=== PATIENT | female | born 1945 | race Caucasian/White ===

== ENCOUNTER 2017-06-19 14:27 | Day surgery (SDC) | payer MEDICARE ==
[~2017-06-19] VITALS: Ht 165.1 cm; Wt 105.2 kg
[~2017-06-19 14:27] MED LIST: ALBU90OI61 INH; ASPI81EC PO; ATEN100 PO; CHOL10002 PO; ESTEST.625 PO; FLUSAL2505 IH; HYDCHL25 PO; IBUP600 PO; LEVSOD125 PO; LISI20 PO; NITR.4SL SL
[2017-06-19] MEDS ORDERED: PRAV20 PO (14:48)
[2017-06-19] MEDS ORDERED: METO50ER PO (14:50)
[2017-06-19] MEDS ORDERED: AMLO5 PO (14:51)
[2017-06-19] MEDS ORDERED: MONT10T PO (14:51)
== END 2017-06-19 16:50 | disposition home or self-care (01) ==
LOC: ORSCSDS 14:27
PROVIDERS: Orthopaedic Surgery
PROC: 0LB60ZZ Excision of Left Lower Arm and Wrist Tendon, Open Approach (ICD-10-PCS; principal; 2017-06-19 16:00)
DX: M67.432 Ganglion, left wrist (principal); I10 Essential (primary) hypertension; J44.9 Chronic obstructive pulmonary disease, unspecified; Z87.891 Personal history of nicotine dependence; Z79.899 Other long term (current) drug therapy; E66.01 Morbid (severe) obesity due to excess calories; Z68.38 Body mass index [BMI] 38.0-38.9, adult
CPT/HCPCS: 88304; J0690; J1100; J2250; J2405; J3010; J7120

== ENCOUNTER 2017-12-28 12:11 | Inpatient (IN) | payer MEDICARE ==
[~2017-12-28] VITALS: Ht 165.1 cm; Wt 105.7 kg
[~2017-12-28 12:11] MED LIST changes: +ADVIL100 MG PO; +ALBU90OI6 INH; +AMLO5 PO; +ASPI81CH PO; +CENTRUM CARDIO PO; +FLUT1DIS5 INH; +LEVSOD100 PO; +LOSA25 PO; +LOSARTAN-HCTZ1 EAC1 PO; +METO50ER PO; +MONT10T PO; +NITR.6SL SL; +PRAV20 PO; +Systane 0.3-0.1 EACH BOTHEYES; +TRAM50 PO; +[UNRECOGNIZED DRUG - OTHER] PO
[2018-01-03 05:19] LABS: BASOPHILS ABSOLUTE AUTO 0.01 K/mm3 (0.00-0.23); BASOPHILS PERCENT AUTO 0 % (0-2); EOSINOPHILS PERCENT AUTO 0 % (0-6); Hematocrit 36.1 % (33.0-51.0); Hemoglobin 11.3 g/dL (11.5-16.0); IMMATURE GRAN ABSOLUTE AUTO 0.07 K/mm3 (0.00-0.10); IMMATURE GRAN PERCENT AUTO 1 % (0-1); LYMPHOCYTES ABSOLUTE AUTO 1.26 K/mm3 (0.84-5.20); LYMPHOCYTES PERCENT AUTO 10 % (21-46); MONOCYTES ABSOLUTE AUTO 1.17 K/mm3 (0.16-1.47); MONOCYTES PERCENT AUTO 9 % (4-13); Mean Corpuscular HGB 27.3 pg (26.0-34.0); Mean Corpuscular HGB Conc 31.3 g/dL (31.5-36.5); Mean Corpuscular Volume 87 fL (80-100); Mean Platelet Volume 10.4 fL (9.1-12.4); NEUTROPHILS ABSOLUTE AUTO 10.67 K/mm3 (1.96-9.15); NEUTROPHILS PERCENT AUTO 81 % (41-73); Platelet Count 241 K/mm3 (150-400); RDW Coefficient Variation 13.1 % (11.7-14.2); RDW Standard Deviation 41.3 fL (35.1-46.3); Red Blood Cell Count 4.14 M/mm3 (3.80-5.20); White Blood Cell Count 13.18 K/mm3 (4.00-11.30)
[2018-01-03 05:29] LABS: Bun/Creatinine Ratio 20.5 (12.0-20.0); Creatinine, Blood 0.98 mg/dL (0.40-1.00); Magnesium, Blood 1.9 mg/dL (1.6-2.4); Potassium, Blood 3.6 mmol/L (3.5-5.5)
[2018-01-03] MEDS ORDERED: ENOX40I SC (10:59)
[2018-01-03] MEDS ORDERED: PROM25 PO (11:00)
[2018-01-03] MEDS ORDERED: OXYC5 PO (11:01)
[2018-01-03] MEDS ORDERED: ASPI325EC PO (11:02)
== END 2018-01-03 15:12 | disposition home or self-care (01) | DRG 470 ==
LOC: SURS 01-02 05:52 → PRE IP 01-02 07:30 → SURS 01-02 11:45
PROVIDERS: Orthopaedic Surgery
PROC: 0SR903A Replacement of Right Hip Joint with Ceramic Synthetic Substitute, Uncemented, Open Approach (ICD-10-PCS; principal; 2018-01-02 07:30)
DX: M16.11 Unilateral primary osteoarthritis, right hip (principal); E87.6 Hypokalemia; Z79.82 Long term (current) use of aspirin; J45.909 Unspecified asthma, uncomplicated; I10 Essential (primary) hypertension; E03.9 Hypothyroidism, unspecified; E66.9 Obesity, unspecified; Z68.38 Body mass index [BMI] 38.0-38.9, adult
CPT/HCPCS: 36415; 72170; 80048; 83735; 85025; 86850; 86900; 86901; 88300; 94760; 97110; 97116; 97162; 97530; C1713; C1776; G8978; G8979; G8980; J0171; J0690; J0735; J1100; J1170; J1650; J1885; J2250; J2405; J2550; J2795; J3010; J3370; J7120

== ENCOUNTER → 2019-02-26 | Outpatient (CLI) | payer MEDICARE ==
[~2019-02-26] MED LIST changes: +ASPI325EC PO; +ENOX40I SC; +OXYC5 PO; +PROM25 PO
[2019-02-28 12:33] LABS: Stool Occult Bld Immuno 1 Negative (NEGATIVE)
== END | disposition home or self-care (01) ==
LOC: LAB EV 11:20
PROVIDERS: Internal Medicine
DX: Z12.11 Encounter for screening for malignant neoplasm of colon (principal); E78.5 Hyperlipidemia, unspecified; R73.09 Other abnormal glucose
CPT/HCPCS: G0328

== ENCOUNTER 2019-11-18 10:24 | Day surgery (SDC) | payer MEDICARE ==
[~2019-11-18] VITALS: Ht 162.6 cm; Wt 107.0 kg
[~2019-11-18 10:24] MED LIST changes: +ALBU90OI INH; +Amiodarone HCl200 MG PO; +ELIQUIS5 MG PO; +Flovent Disku100 MCG INH; +IRBE150 PO; +MAGNESIUM OXID400 M1 PO
--- NOTE | 2019-11-18 11:30 | NUR ---
PT'S IN ROOM AND CALL LIGHT IN REACH.
--- NOTE | 2019-11-18 12:18 | NUR ---
200 J SYNCHRONIZED SHOCK DELIEVERED. PT TOLERATED WELL.
--- NOTE | 2019-11-18 12:33 | NUR ---
PT'S IN ROOM.
--- NOTE | 2019-11-18 13:27 | NUR ---
DISCHARGE INSTRUCTIONS REVIEWED ALL QUESTIONS ANSWERED. 20 G IV DISCONTINUED FROM LEFT AC WITH INTACT CANNULA. PT ESCORTED OUT VIA WHEELCHAIR ESCORT.
== END 2019-11-18 22:48 | disposition home or self-care (01) ==
LOC: MHTC 10:24
DX: I48.91 Unspecified atrial fibrillation (principal)
CPT/HCPCS: 92960; 93005; 93010; J2704; J7030

== ENCOUNTER 2019-12-22 06:57 | Day surgery (SDC) | payer MEDICARE ==
--- NOTE | 2019-12-22 08:54 | NUR ---
DISCHARGE SUMMARY Patient up to Ambulate independently. Gait steady. Discharge instructions reviewed with patient. Patient verbalizes understanding. Copy given to patient to take home. PT LEFT TO GO HOME WITH . IV DC'D.
== END 2019-12-22 12:00 | disposition home or self-care (01) ==
LOC: CT 06:57 → ORD 06:57 → CT 08:00 → ORD 12:00
DX: I48.91 Unspecified atrial fibrillation (principal); I10 Essential (primary) hypertension; E78.5 Hyperlipidemia, unspecified; E03.9 Hypothyroidism, unspecified; J44.9 Chronic obstructive pulmonary disease, unspecified; E55.9 Vitamin D deficiency, unspecified; Z79.01 Long term (current) use of anticoagulants; Z79.51 Long term (current) use of inhaled steroids; Z79.899 Other long term (current) drug therapy; Z87.891 Personal history of nicotine dependence; Z88.1 Allergy status to other antibiotic agents; Z88.5 Allergy status to narcotic agent
CPT/HCPCS: 75574; Q9967

== ENCOUNTER → 2022-11-29 | Outpatient (CLI) | payer MEDICARE | END | disposition home or self-care (01) | LOC: LAB SHORT 17:04 → LAB 17:04 | DX: L03.032 Cellulitis of left toe (principal) | CPT/HCPCS: 87070; 87077; 87205 ==

== ENCOUNTER 2024-04-13 20:50 | Inpatient (IN) | payer MEDICARE ==
[~2024-04-13] VITALS: Ht 157.5 cm; Wt 103.1 kg
[~2024-04-13 20:50] MED LIST changes: +EUTHYROX125 MCG PO; -LEVSOD100 PO; +METO25ER PO; +PRAVASTATIN SOD40 MG PO; +SYSTANE 0.4-0.315 ML BOTHEYES; -Systane 0.3-0.1 EACH BOTHEYES
[2024-04-13 21:57] LABS: BASOPHILS ABSOLUTE AUTO 0.03 K/mm3 (0.00-0.23); BASOPHILS PERCENT AUTO 0 % (0-2); EOSINOPHILS PERCENT AUTO 0 % (0-6); Hematocrit 44.1 % (33.0-51.0); Hemoglobin 14.4 g/dL (11.5-16.0); IMMATURE GRAN ABSOLUTE AUTO 0.08 K/mm3 (0.00-0.10); IMMATURE GRAN PERCENT AUTO 1 % (0-1); LYMPHOCYTES PERCENT AUTO 5 % (21-46); MONOCYTES ABSOLUTE AUTO 0.63 K/mm3 (0.16-1.47); MONOCYTES PERCENT AUTO 7 % (4-13); Mean Corpuscular HGB 28.3 pg (26.0-34.0); Mean Corpuscular HGB Conc 32.7 g/dL (31.5-36.5); Mean Corpuscular Volume 87 fL (80-100); Mean Platelet Volume 10.9 fL (9.1-12.4); NEUTROPHILS ABSOLUTE AUTO 7.35 K/mm3 (1.96-9.15); NEUTROPHILS PERCENT AUTO 87 % (41-73); Platelet Count 215 K/mm3 (150-400); RDW Coefficient Variation 13.6 % (11.7-14.2); RDW Standard Deviation 43.3 fL (35.1-46.3); Red Blood Cell Count 5.08 M/mm3 (3.80-5.20); White Blood Cell Count 8.49 K/mm3 (4.00-11.30)
[2024-04-13] MEDS ORDERED: Albuterol 2.5 MG/3 ML VIAL INH SCH (22:00)
[2024-04-13] MEDS ORDERED: Ipratropium Bromide INH 0.02% 0.5 mg/2.5ML Vial INH SCH (22:00)
[2024-04-13] MEDS ORDERED: Ondansetron HCl 2 MG / ML 2ML Vial IV ONE (22:00)
[2024-04-13] MEDS ORDERED: MethylPREDNISolone Sod Succ 125 MG Vial IV ONE (22:00)
[2024-04-13] MEDS ORDERED: Acetaminophen 500 MG Tab PO ONE (22:00)
[2024-04-13 22:11] LABS: Albumin, Blood 3.8 g/dL (3.4-5.0); Bilirubin, Total 0.8 mg/dL (0.1-1.0); Bun/Creatinine Ratio 17.8 (12.0-20.0); Calcium, Blood 9.7 mg/dL (8.5-10.1); Creatinine, Blood 1.01 mg/dL (0.40-1.00); Total Protein, Blood 7.8 g/dL (6.4-8.2)
[2024-04-13 22:52] LABS: Influenza B, PCR NEGATIVE (NEGATIVE); Resp Syncytial Virus, PCR NEGATIVE (NEGATIVE); SARS-Cov-2 (COVID-19) PCR, MMC NEGATIVE (NEGATIVE)
[2024-04-13] MEDS ORDERED: Potassium Chloride 20 MEQ/15 ML UDC PO ONE (23:40)
[2024-04-14] MEDS ORDERED: Acetaminophen 325 MG TABLET PO PRN (01:30)
[2024-04-14] MEDS ORDERED: FLU VACC TS2024-25(6MOS UP)/PF 45 MCG/0.5 ML SYRINGE IM ONE (01:30)
[2024-04-14] MEDS ORDERED: Potassium Chloride 20 MEQ TabCR PO ONE (02:00)
[2024-04-14] MEDS ORDERED: Apixaban 5 MG Tab PO SCH (02:00)
[2024-04-14 03:49] VITALS: BP 117/70
--- NOTE | 2024-04-14 05:23 | NUR ---
ADMIT NOTE/SHIFT SUMMARY REPORT WAS RECEIVED FROM THE ER. PT WAS TRANSPORTED TO ROOM 348 VIA GURNEY AND ARRIVED AT 0350. PT WAS ORIENTED TO ROOM AND STAFF. PT ALERT ORIENTED X 4 ABLE TO VERBALIZE NEEDS. REQUIRES 1 PERSON ASSIST TO GET UP TO THE TOILET. C/O GENERALIZED PAIN AND STATED THAT SHE HAD ALREADY TAKEN IBUPROFEN. SHE IS CURRENTLY ON 3L VIA NC AND STATED THAT SHE USES 2 L AT NIGHT AT HOME. SHES POSITIVE FOR INFLUENZA A. LUNG SOUNDS WITH WHEEZES. C/O SOB ON EXERTION. SHE HAD A TEMP IN THE ER BUT ITS NORMAL AT THIS TIME. HER SKIN CHECK SHOWED REDNESS TO UNDER BREASTS, UNDER ABDOMEN FOLDS GROIN AND HER COCCYX. SHE REMAINS ON DROPLET ISOLATION R/T TO INFLUENZA. SHES RESTING IN BED AT THIS TIME WITH CALL LIGHT IN REACH
[2024-04-14 06:09] LABS: BASOPHILS PERCENT AUTO 0 % (0-2); EOSINOPHILS PERCENT AUTO 0 % (0-6); Hematocrit 41.3 % (33.0-51.0); Hemoglobin 13.3 g/dL (11.5-16.0); IMMATURE GRAN ABSOLUTE AUTO 0.06 K/mm3 (0.00-0.10); IMMATURE GRAN PERCENT AUTO 1 % (0-1); LYMPHOCYTES ABSOLUTE AUTO 0.33 K/mm3 (0.84-5.20); LYMPHOCYTES PERCENT AUTO 5 % (21-46); MONOCYTES ABSOLUTE AUTO 0.21 K/mm3 (0.16-1.47); MONOCYTES PERCENT AUTO 3 % (4-13); Mean Corpuscular HGB 28.3 pg (26.0-34.0); Mean Corpuscular HGB Conc 32.2 g/dL (31.5-36.5); Mean Corpuscular Volume 88 fL (80-100); Mean Platelet Volume 10.4 fL (9.1-12.4); NEUTROPHILS ABSOLUTE AUTO 5.94 K/mm3 (1.96-9.15); NEUTROPHILS PERCENT AUTO 91 % (41-73); Platelet Count 190 K/mm3 (150-400); RDW Coefficient Variation 13.7 % (11.7-14.2); RDW Standard Deviation 44.2 fL (35.1-46.3); White Blood Cell Count 6.54 K/mm3 (4.00-11.30)
[2024-04-14 06:42] LABS: Albumin, Blood 3.4 g/dL (3.4-5.0); Albumin/Globulin Ratio 0.9 (0.8-1.8); Bilirubin, Total 0.6 mg/dL (0.1-1.0); Bun/Creatinine Ratio 20.7 (12.0-20.0); Calcium, Blood 9.8 mg/dL (8.5-10.1); Creatinine, Blood 1.16 mg/dL (0.40-1.00); Globulin, Blood 3.9 g/dL (2.2-4.0); Magnesium, Blood 1.8 mg/dL (1.6-2.4); Potassium, Blood 3.7 mmol/L (3.5-5.5); Total Protein, Blood 7.3 g/dL (6.4-8.2)
[2024-04-14 07:38] VITALS: BP 121/62
[2024-04-14] MEDS ORDERED: OxyCODONE HCL 5 MG TAB PO PRN (08:35)
[2024-04-14] MEDS ORDERED: PredniSONE 20 MG Tab PO SCH (09:00)
[2024-04-14] MEDS ORDERED: GuaiFENesin 600 MG TabCR PO SCH (09:00)
[2024-04-14] MEDS ORDERED: Oseltamivir Phosphate 75 MG Cap PO SCH (09:00)
[2024-04-14] MEDS ORDERED: Ondansetron 4 MG TAB PO PRN (11:55)
[2024-04-14 15:33] VITALS: BP 153/96
[2024-04-14] MEDS ORDERED: Ipratropium/Albuterol SulF 2.5-0.5MG/3 ML Amp INH PRN (17:55)
--- NOTE | 2024-04-14 18:42 | NUR ---
PT ALERT AND ORIENTED X4, VSS, 3L O2 VIA NC, BASELINE IS 0-2L MOSTLY OVERNIGHT. PT C/O COUGH, HEADACHE AND SORE THROAT, PRN OXYCODONE ORDERED AND GIVEN X1. DAUGHTER IN ROOM ASSISTED PT TO SHOWER. PT CONTINUES TO HAVE EXPIRATORY WHEEZES THROUGHOUT LUNGS, DUONEB ORDERED. PT HAS STRESS INCONTINENCE OF URINE. CALLS APPROPRIATELY, CALL LIGHT IN REACH, BED IN LOW LOCKED POSITION.
[2024-04-14 20:20] VITALS: BP 150/91
[2024-04-14] MEDS ORDERED: Miconazole Nitrate 2% 85 GM PWD TOP SCH (21:00)
[2024-04-14] MEDS ORDERED: Montelukast Sodium 10 MG Tab PO SCH (21:00)
--- NOTE | 2024-04-15 04:29 | NUR ---
SHIFT SUMMARY ADMITTED FOR COPD EXACERBATION. FULL CODE. ISOLATION FOR FLU A+. PLAN IS TAMIFLU, STEROIDS, RT TX'S. MAY NEED HOME O2 EVAL. STANDBY ASSIST. SHE IS ON 3 LPM O2. SHE IS ON ELIQUIS. A&O X4. ADA DIET. HX OF AFIB, 2 LPM O2 PRN AT HS., COPD. PAIN MEDICATION GIVEN THIS SHIFT, SEE EMAR.
[2024-04-15 04:46] VITALS: BP 161/93
[2024-04-15] MEDS ORDERED: Levothyroxine Sodium 0.15 MG Tab PO SCH (06:00)
[2024-04-15 06:23] LABS: BASOPHILS ABSOLUTE AUTO 0.01 K/mm3 (0.00-0.23); BASOPHILS PERCENT AUTO 0 % (0-2); EOSINOPHILS PERCENT AUTO 0 % (0-6); Hematocrit 42.5 % (33.0-51.0); Hemoglobin 13.8 g/dL (11.5-16.0); IMMATURE GRAN ABSOLUTE AUTO 0.08 K/mm3 (0.00-0.10); IMMATURE GRAN PERCENT AUTO 1 % (0-1); LYMPHOCYTES ABSOLUTE AUTO 0.89 K/mm3 (0.84-5.20); LYMPHOCYTES PERCENT AUTO 6 % (21-46); MONOCYTES ABSOLUTE AUTO 1.16 K/mm3 (0.16-1.47); MONOCYTES PERCENT AUTO 8 % (4-13); Mean Corpuscular HGB Conc 32.5 g/dL (31.5-36.5); Mean Corpuscular Volume 86 fL (80-100); Mean Platelet Volume 10.3 fL (9.1-12.4); NEUTROPHILS ABSOLUTE AUTO 13.38 K/mm3 (1.96-9.15); NEUTROPHILS PERCENT AUTO 86 % (41-73); Platelet Count 200 K/mm3 (150-400); RDW Coefficient Variation 13.5 % (11.7-14.2); RDW Standard Deviation 42.2 fL (35.1-46.3); Red Blood Cell Count 4.93 M/mm3 (3.80-5.20); White Blood Cell Count 15.52 K/mm3 (4.00-11.30)
[2024-04-15 06:54] LABS: Bun/Creatinine Ratio 24.2 (12.0-20.0); Calcium, Blood 9.4 mg/dL (8.5-10.1); Creatinine, Blood 0.87 mg/dL (0.40-1.00); Potassium, Blood 3.2 mmol/L (3.5-5.5)
[2024-04-15 07:41] VITALS: BP 155/90
[2024-04-15] MEDS ORDERED: Metoprolol Succinate 25 MG TABCR PO SCH (09:00)
[2024-04-15] MEDS ORDERED: Allopurinol 100 MG Tab PO SCH (09:00)
[2024-04-15] MEDS ORDERED: Polyethylene Glycol 3350 17 gm PO PRN (11:00)
[2024-04-15 16:07] VITALS: BP 150/83
--- NOTE | 2024-04-15 17:29 | NUR ---
NO ACUTE CHANGES THIS SHIFT. ATTEMPTED TO WEAN PT FROM O2. PT DESAT TO 85% ON R/A. PT PLACED ON 1.5L NC. PT DESAT TO 90% WITH 1.5L NC WITH COUGH. PT C/O OF GENERALIZED PAIN THAT WORSENS WITH COUGH. TREATED PER EMAR. BREATHING TREATMENTS PROVIDE SOME RELIEF, WHEEZING NOTED THROUGHOUT LUNG SOUNDS. PT SBA TO BATHROOM, PT FAMILY AT BEDSIDE TODAY. PT REPORTS NO BM FOR 3 OR 4 DAYS, MD AWARE, BOWEL CARE ORDERS IN, PRUNE JUICE AND BROWN COW GIVEN WITH NO RESULT YET. PT POOR APPETITE, ABLE TO TOLORATE PO INTAKE, PT DRINKING FLUIDS.
[2024-04-15 19:47] VITALS: BP 133/89
--- NOTE | 2024-04-16 03:54 | NUR ---
SHIFT SUMMARY ADMITTED FOR COPD EXACERBATION. FULL CODE. ISOLATION FOR FLU A+. PLAN IS FOR TAMIFLU, STEROIDS, AND RT TX'S. SHE IS A&O X4. STANDBY ASSIST - BRP. ON 02/27 LPM O2. DESATURATES WITH MOVEMENT. MAY NEED HOME O2 EVAL. SHE IS ON ELIQUIS. PAIN RX GIVEN THIS SHIFT FOR HEADACHE AND BODY ACHES.
[2024-04-16 04:24] VITALS: BP 147/94
[2024-04-16 06:19] LABS: BASOPHILS ABSOLUTE AUTO 0.02 K/mm3 (0.00-0.23); BASOPHILS PERCENT AUTO 0 % (0-2); EOSINOPHILS PERCENT AUTO 0 % (0-6); Hematocrit 44.8 % (33.0-51.0); Hemoglobin 14.5 g/dL (11.5-16.0); IMMATURE GRAN ABSOLUTE AUTO 0.08 K/mm3 (0.00-0.10); IMMATURE GRAN PERCENT AUTO 1 % (0-1); LYMPHOCYTES ABSOLUTE AUTO 0.94 K/mm3 (0.84-5.20); LYMPHOCYTES PERCENT AUTO 7 % (21-46); MONOCYTES ABSOLUTE AUTO 0.91 K/mm3 (0.16-1.47); MONOCYTES PERCENT AUTO 7 % (4-13); Mean Corpuscular HGB 28.4 pg (26.0-34.0); Mean Corpuscular HGB Conc 32.4 g/dL (31.5-36.5); Mean Corpuscular Volume 88 fL (80-100); Mean Platelet Volume 10.5 fL (9.1-12.4); NEUTROPHILS PERCENT AUTO 85 % (41-73); Platelet Count 237 K/mm3 (150-400); RDW Coefficient Variation 13.5 % (11.7-14.2); RDW Standard Deviation 43.6 fL (35.1-46.3); White Blood Cell Count 13.25 K/mm3 (4.00-11.30)
[2024-04-16 07:01] LABS: Albumin, Blood 3.6 g/dL (3.4-5.0); Albumin/Globulin Ratio 0.9 (0.8-1.8); Bilirubin, Total 0.5 mg/dL (0.1-1.0); Calcium, Blood 9.7 mg/dL (8.5-10.1); Creatinine, Blood 0.95 mg/dL (0.40-1.00); Globulin, Blood 3.8 g/dL (2.2-4.0); Potassium, Blood 3.5 mmol/L (3.5-5.5); Total Protein, Blood 7.4 g/dL (6.4-8.2)
[2024-04-16 07:03] VITALS: BP 145/83
[2024-04-16 15:32] VITALS: BP 140/81
[2024-04-16] MEDS ORDERED: Benzonatate 100 MG Cap PO PRN (15:40)
[2024-04-16] MEDS ORDERED: MethylPREDNISolone Sod Succ 40 MG VIAL IV SCH (16:00)
--- NOTE | 2024-04-16 18:18 | NUR ---
NO ACUTE CHANGES THIS SHIFT, PT REPORTS NOT FEELING GOOD THIS EVENING, TREATED COUGH PER EMAR. 1.5L NC. INDEPENDENT IN THE ROOM, FAMILY HAS BEEN AT BEDSIDE THIS SHIFT. IV STERIODS STARTED TODAY. ALERT AND ORIENTED X4, ABLE TO EXPRESS NEEDS, NO BM THIS SHIFT, TREATED PER EMAR.
[2024-04-16] MEDS ORDERED: Guaifenesin/Dextromethorphan Syrup 5 ML UDC PO PRN (19:55)
[2024-04-16 20:19] VITALS: BP 174/84
[2024-04-16] MEDS ORDERED: GuaiFENesin 600 MG TabCR PO SCH (21:00)
[2024-04-17 02:55] VITALS: BP 152/90
--- NOTE | 2024-04-17 04:30 | NUR ---
SHIFT SUMMARY ADMITTED FOR COPD EXACERBATION. FULL CODE. ISOLATION FOR FLU A+. IV STEROIDS, TAMIFLU GIVEN THIS SHIFT. OBTAINED ORDER FOR COUGH SYRUP THIS SHIFT. SHE REPORTED THAT THE TESSALON PEARLS WERE INEFFECTIVE. SHE REPORTS ALSO THAT TWO FAMILY MEMBERS ARE SEVERELY SICK WITH FLU A WELL. SHE IS A&O X4. COOPERATIVE WITH CARE. STANDBY ASSIST - BRP. SHE IS ON 1 1/2 LPM O2 HERE, SHE DESATURATES WITH AMBULATION OR MOVEMENT. PAIN MEDICATION GIVEN THIS SHIFT. SHE IS ON ELIQUIS.
[2024-04-17 05:55] LABS: BASOPHILS ABSOLUTE AUTO 0.01 K/mm3 (0.00-0.23); BASOPHILS PERCENT AUTO 0 % (0-2); EOSINOPHILS PERCENT AUTO 0 % (0-6); Hematocrit 42.4 % (33.0-51.0); Hemoglobin 13.7 g/dL (11.5-16.0); IMMATURE GRAN ABSOLUTE AUTO 0.06 K/mm3 (0.00-0.10); IMMATURE GRAN PERCENT AUTO 1 % (0-1); LYMPHOCYTES ABSOLUTE AUTO 0.81 K/mm3 (0.84-5.20); LYMPHOCYTES PERCENT AUTO 11 % (21-46); MONOCYTES ABSOLUTE AUTO 0.29 K/mm3 (0.16-1.47); MONOCYTES PERCENT AUTO 4 % (4-13); Mean Corpuscular HGB 28.1 pg (26.0-34.0); Mean Corpuscular HGB Conc 32.3 g/dL (31.5-36.5); Mean Corpuscular Volume 87 fL (80-100); Mean Platelet Volume 10.1 fL (9.1-12.4); NEUTROPHILS ABSOLUTE AUTO 6.39 K/mm3 (1.96-9.15); NEUTROPHILS PERCENT AUTO 85 % (41-73); Platelet Count 234 K/mm3 (150-400); RDW Coefficient Variation 13.6 % (11.7-14.2); RDW Standard Deviation 43.3 fL (35.1-46.3); Red Blood Cell Count 4.88 M/mm3 (3.80-5.20); White Blood Cell Count 7.56 K/mm3 (4.00-11.30)
[2024-04-17 06:19] LABS: Bun/Creatinine Ratio 26.5 (12.0-20.0); Calcium, Blood 9.5 mg/dL (8.5-10.1); Creatinine, Blood 0.76 mg/dL (0.40-1.00); Potassium, Blood 3.8 mmol/L (3.5-5.5)
[2024-04-17 08:04] VITALS: BP 158/92
[2024-04-17] MEDS ORDERED: Calcium Carbonate 500 MG Tab Chew PO PRN (14:20)
[2024-04-17] MEDS ORDERED: Chlorphiramine/Hydrod Polistir 5 ML UDC PO ONE (14:35)
[2024-04-17 17:02] VITALS: BP 159/104
--- NOTE | 2024-04-17 18:34 | NUR ---
NO ACUTE CHANGES THIS SHIFT. COUGH NOT CONTROLLED BY CURRENT REGIMEN. PRN BREATHING TREATMENTS. PT MAY BENEFIT FROM SCHEDULED TREATMENT. PT IS CONSTIPATED, BOWEL CARE ADMIN PER EMAR. VERY SMALL BM THIS SHIFT. PT HAS PAIN IN RIB AREA DUE TO COUGHING FITS, 1.5L NC. MD AWARE. PER MD, WILL UPDATE ORDERS IF INDICATED. TELE ORDERED DUE TO INCREASE IN HR WITH COUGH. CONCERN FOR RVR. PT FAMILY IN ROOM, EDUCATION PROVIDED ON RISK OF INFECTION AND WAYS TO REDUCE SPREAD OF VIRUS. SBA DUE TO INCREASE WOB. WHEEZING NOTED THROUGHOUT LUNG SOUNDS.
[2024-04-17 19:25] VITALS: BP 150/82
[2024-04-17 23:55] VITALS: BP 149/89
[2024-04-18 05:21] VITALS: BP 178/111
[2024-04-18 05:59] LABS: BASOPHILS ABSOLUTE AUTO 0.03 K/mm3 (0.00-0.23); BASOPHILS PERCENT AUTO 0 % (0-2); EOSINOPHILS PERCENT AUTO 0 % (0-6); Hematocrit 44.6 % (33.0-51.0); Hemoglobin 14.5 g/dL (11.5-16.0); IMMATURE GRAN ABSOLUTE AUTO 0.22 K/mm3 (0.00-0.10); IMMATURE GRAN PERCENT AUTO 2 % (0-1); LYMPHOCYTES ABSOLUTE AUTO 1.11 K/mm3 (0.84-5.20); LYMPHOCYTES PERCENT AUTO 9 % (21-46); MONOCYTES ABSOLUTE AUTO 0.52 K/mm3 (0.16-1.47); MONOCYTES PERCENT AUTO 4 % (4-13); Mean Corpuscular HGB 28.2 pg (26.0-34.0); Mean Corpuscular HGB Conc 32.5 g/dL (31.5-36.5); Mean Corpuscular Volume 87 fL (80-100); Mean Platelet Volume 10.2 fL (9.1-12.4); NEUTROPHILS ABSOLUTE AUTO 9.92 K/mm3 (1.96-9.15); NEUTROPHILS PERCENT AUTO 84 % (41-73); Platelet Count 278 K/mm3 (150-400); RDW Coefficient Variation 13.4 % (11.7-14.2); RDW Standard Deviation 42.5 fL (35.1-46.3); Red Blood Cell Count 5.14 M/mm3 (3.80-5.20)
--- NOTE | 2024-04-18 06:21 | NUR ---
SHIFT SUMMARY: Pt is admitted for acute hypoxic respiratory failure and is a full code. Is alert and able to make needs known. ADLs have been mostly IND but has requested SBA PRN. denies pain or discomfort outside of being sore due to coughing. Declined any medication intervention. Nilesh reports afib in the 80s with no events. On droplet ISO for FLU A.
[2024-04-18 06:31] LABS: Bun/Creatinine Ratio 27.5 (12.0-20.0); Creatinine, Blood 0.87 mg/dL (0.40-1.00); Potassium, Blood 3.8 mmol/L (3.5-5.5)
[2024-04-18 07:16] VITALS: BP 162/94
[2024-04-18] MEDS ORDERED: Albuterol 2.5 MG/3 ML VIAL INH SCH (08:45)
[2024-04-18] MEDS ORDERED: Ipratropium/Albuterol SulF 2.5-0.5MG/3 ML Amp INH SCH (09:05)
[2024-04-18 11:42] VITALS: BP 155/79
[2024-04-18] MEDS ORDERED: Albuterol 2.5 MG/3 ML VIAL INH PRN (14:50)
[2024-04-18 15:24] VITALS: BP 184/77
--- NOTE | 2024-04-18 17:58 | NUR ---
SHIFT SUMMARY PATIENT ALERT AND INTERACTIVE. PATIENT ABLE TO MAKE NEEDS KNOWN. DAUGHTER AT BEDSIDE MOST OF THE DAY. PATIENT CONTINUES TO HAVE SOB AND COUGHING SPELLS. PATIENT STATES THAT SHE IS COUGHING UP SMALL AMOUNTS OF DARK BROWN SPUTUM. PATIENT CONTINUES TO BE ON OXYGEN. PROVIDED EDUCATION RELATED TO OXYGEN USE, MEDICATIONS, AND POSITIONING. PATIENT HAS HX OF COPD AND SEES A PROFESSOR OF APOLOGETICS AN OUTPATIENT.
[2024-04-18 19:32] VITALS: BP 157/76
[2024-04-19] VITALS (8 sets, daily range): BP systolic 134–185; BP diastolic 71–96
--- NOTE | 2024-04-19 05:21 | NUR ---
SHIFT SUMMARY. PATIENT IS A&OX4, CALLS APPROPRIATELY AND IS ABLE TO MAKE HER NEEDS KNOWN. PATIENT CONTINUES TO HAVE SOB AND COUGHING SPELLS-BLOOD PRESSURE INCREASED THIS MORNING-PATIENT WAS RECENTLY UP TO BATHROOM AND HAD A COUGHING SPELL. PATIENT IS ON 3L'S OF OXYGEN-RA IS BASE, ALTHOUGH PATIENT MENTIONS SHE HAS O2 AT HOME THAT SHE DOES NOT USE- PATIENT SEES OUT PATIENT ELECTRONICS TECHNICIAN APPRENTICE. PATIENT HAS INCREASED SOB WITH EXERTION. PATIENT REPORTS THAT SHE IS ABLE TO COUGH UP SMALL AMOUNTS OF THICK SPUTUM. DAUGHTER IN AT BEDSIDE AT BEGINNING OF SHIFT-WOULD LIKE TO BE HERE WHEN DOCTOR COMES IN-WILL RELAY TO DAYSHIFT RN. BED IS LOCKED IN THE LOWEST POSITION WITH CALL LIGHT IN REACH, CARE IS ONGOING.
[2024-04-19 06:48] LABS: BASOPHILS ABSOLUTE AUTO 0.07 K/mm3 (0.00-0.23); BASOPHILS PERCENT AUTO 1 % (0-2); EOSINOPHILS PERCENT AUTO 0 % (0-6); Hematocrit 43.3 % (33.0-51.0); Hemoglobin 13.7 g/dL (11.5-16.0); IMMATURE GRAN ABSOLUTE AUTO 0.61 K/mm3 (0.00-0.10); IMMATURE GRAN PERCENT AUTO 4 % (0-1); LYMPHOCYTES PERCENT AUTO 8 % (21-46); MONOCYTES ABSOLUTE AUTO 0.82 K/mm3 (0.16-1.47); MONOCYTES PERCENT AUTO 6 % (4-13); Mean Corpuscular HGB 27.6 pg (26.0-34.0); Mean Corpuscular HGB Conc 31.6 g/dL (31.5-36.5); Mean Corpuscular Volume 87 fL (80-100); Mean Platelet Volume 9.9 fL (9.1-12.4); NEUTROPHILS ABSOLUTE AUTO 11.85 K/mm3 (1.96-9.15); NEUTROPHILS PERCENT AUTO 82 % (41-73); Platelet Count 267 K/mm3 (150-400); RDW Coefficient Variation 13.4 % (11.7-14.2); RDW Standard Deviation 42.8 fL (35.1-46.3); Red Blood Cell Count 4.96 M/mm3 (3.80-5.20); White Blood Cell Count 14.45 K/mm3 (4.00-11.30)
[2024-04-19 07:22] LABS: Calcium, Blood 9.6 mg/dL (8.5-10.1); Creatinine, Blood 0.96 mg/dL (0.40-1.00); Potassium, Blood 4.1 mmol/L (3.5-5.5)
[2024-04-19] MEDS ORDERED: Docusate Sodium/Senna 1 Tab PO PRN (10:20)
[2024-04-19] MEDS ORDERED: CefTRIAXone Sodium 1,000 MG in NS 100 ML IV SCH (10:33)
[2024-04-19] MEDS ORDERED: NS 250 ML IV PRN (11:00)
--- NOTE | 2024-04-19 18:09 | NUR ---
SHIFT SUMMARY PT A&OX4. PT ADMITTED DUE TO ACUTE HYPOXIC RESP FAILURE, IN DROPLET FOR FLU. PT REPORTS NO CHEST PAIN. PT REPORTS SOB WITH AMBULATION AND POST COUGHING. PT EATS ADEQUATE. PT INDEPENDENT IN ROOM. DAUGHTER AT BEDSIDE THROUGH SHIFT. PT ON TELE. CONT. PULSE ON. SPO2 IS 96%. PT ON 2L VIA N/C. PT REPORTS PAIN, PAIN MANAGED PER EMAR. WITH OXY AND TYLENOL, PT RECEIVING TESSLON AMOL TO HELP COUGH. RESPIRATORY THERAPY CAME FOR TREATMENT. PT GOT CHEST XRAY THIS AM. PT IN BED. BED IN LOWEST POSITION, CALL LIGHT IN REACH. PT RECEIVING ANTIBIOTICS. VSS
[2024-04-19] MEDS ORDERED: Lactobacil 2-S.Thermo-Bifido 1 1 Cap PO SCH (21:00)
--- NOTE | 2024-04-20 03:48 | NUR ---
SHIFT SUMMARY PT IS A/O X4, ABLE TO MAKE HER NEEDS KNOWN AND COOPERATIVE WITH CARE. @HS DAUGHTER BY THE BEDSIDE. PT CONTINUES IN DROPLET ISOLATION D/T DX OF INFLUENZA A. PT IS AFEBRILE, LUNGS COARSE ON UL'S AND WHEEZING ON LL'S PER AUSCULTATION. PRODUCTIVE COUGH INTERMITTENTLY NOTED. PT REPORTS PAIN IN DEBBIE AND FAMILIA, WELL IN RIBS D/T COUGHING. MEDICATED WITH PRN OXYCODONE @HS. PT REQUESTING PRN BROWN WAITE, GOOD EFFECTIVNESS. NO ACUTE EVENTS DURING THIS SHIFT. CONTINUOUS PULSE OXIMETER O2 SAT'S>95% ON RA. BED AT THE LOWEST POSITION, CALL LIGHT W/I REACH.
[2024-04-20 04:14] VITALS: BP 154/94
[2024-04-20 06:39] LABS: Hematocrit 42.8 % (33.0-51.0); Hemoglobin 13.8 g/dL (11.5-16.0); Mean Corpuscular HGB 28.2 pg (26.0-34.0); Mean Corpuscular HGB Conc 32.2 g/dL (31.5-36.5); Mean Corpuscular Volume 88 fL (80-100); Platelet Count 265 K/mm3 (150-400); RDW Coefficient Variation 13.4 % (11.7-14.2); Red Blood Cell Count 4.89 M/mm3 (3.80-5.20); White Blood Cell Count 14.83 K/mm3 (4.00-11.30)
[2024-04-20 06:56] LABS: Albumin, Blood 3.3 g/dL (3.4-5.0); Bilirubin, Total 0.7 mg/dL (0.1-1.0); Bun/Creatinine Ratio 23.5 (12.0-20.0); Calcium, Blood 9.6 mg/dL (8.5-10.1); Creatinine, Blood 0.98 mg/dL (0.40-1.00); Globulin, Blood 3.3 g/dL (2.2-4.0); Potassium, Blood 4.2 mmol/L (3.5-5.5); Total Protein, Blood 6.6 g/dL (6.4-8.2)
[2024-04-20 07:33] LABS: BAND PERCENT MAN 2 % (0-8); BASOPHILS PERCENT MAN 0 % (0-2); EOSINOPHILS PERCENT MAN 0 % (0-6); LYMPHOCYTES ABSOLUTE MAN 0.44 K/mm3 (0.84-5.20); LYMPHOCYTES PERCENT MAN 3 % (21-46); METAMYELOCYTE ABSOLUTE MAN 0.44 K/mm3 (0.00-0.00); METAMYELOCYTE PERCENT MAN 3 % (0-0); MONOCYTES ABSOLUTE MAN 0.44 K/mm3 (0.16-1.47); MONOCYTES PERCENT MAN 3 % (4-13); MYELOCYTE ABSOLUTE MAN 0.14 K/mm3 (0.00-0.00); MYELOCYTE PERCENT MAN 1 % (0-0); NEUTROPHILS ABSOLUTE MAN 13.34 K/mm3 (1.96-9.15); SEG NEUTROPHILS PERCENT MAN 88 % (41-73); TOTAL CELLS COUNTED 100
[2024-04-20 08:21] VITALS: BP 170/100
[2024-04-20 11:22] VITALS: BP 138/72
[2024-04-20] MEDS ORDERED: DiphenhydrAMINE HCl 50 MG/ML 1ML Vial IV PRN (12:55)
[2024-04-20 15:28] VITALS: BP 143/82
[2024-04-20 19:26] VITALS: BP 135/69
--- NOTE | 2024-04-20 19:28 | NUR ---
SHIFT SUMMARY PT A&OX4. PT ADMITTED DUE TO ACUTE HYPOXIC RESP FAILURE, IN DROPLET FOR FLU. PT REPORTS NO CHEST PAIN. PT REPORTS SOB WITH AMBULATION AND POST COUGHING. PT EATS ADEQUATE. PT INDEPENDENT IN ROOM. DAUGHTER AT BEDSIDE THROUGH SHIFT. PT ON TELE. PT ON 2L VIA N/C. PT REPORTS PAIN, PAIN MANAGED PER EMAR. WITH OXY AND TYLENOL. PT RECEIVING TESSLON LEARL TO HELP WITH COUGH. RESP. THERAPY CAME FOR TREATMENT. PT BED IN LOWEST POSITION , CALL LIGHT IN REACH. PT RECEIEVING ANTIBIOTICS. VSS. PT REPORTED RASH ON FOREARM. PT REPORTS NO SIGN OF SEVERE ALLERGY AND NO ITCHING. PT REPORTED IT FEELING SWOLLEN. APPLIED HEAT/ICE. CALLED TO REPORT, ORDERED BENADRYL. HELD IT DUE TO CLINICAL JUDGEMENT, UPON FURTHER ASSESSMENT AND CONSULT WITH ANOTHER RN, REDNESS MAY BE DUE TO KOBAN THAT WAS ON ARM, REPORTED RASH IRRITATION TO NIGHT NURSE, DAUGHTER AT BEDSIDE.
[2024-04-21] VITALS (7 sets, daily range): BP systolic 141–186; BP diastolic 69–105
--- NOTE | 2024-04-21 03:59 | NUR ---
SHIFT SUMMARY NO ACUTE EVENTS DURING THIS SHIFT. PT CONTINUES ON O2 2L VIA NASAL CANNULA. CONTINUOUS PULSE OX SAT'S>93%. PT HAS A PRODUCTIVE INTERMITTENT COUGH, AND UPPER ABDOMINAL AND RIB PAIN D/T COUGHING. MEDICATED PER EMAR. TELE:Erin-FIB @88. BED AT THE LOWEST POSITION, CALL LIGHT W/ REACH. PT IS A/O X4, ABLE TO MAKE HER NEEDS KNOWN AND COOPERATIVE WITH CARE.
[2024-04-21 06:03] LABS: Hematocrit 46.5 % (33.0-51.0); Hemoglobin 14.6 g/dL (11.5-16.0); Mean Corpuscular HGB 28.3 pg (26.0-34.0); Mean Corpuscular HGB Conc 31.4 g/dL (31.5-36.5); Mean Corpuscular Volume 90 fL (80-100); Mean Platelet Volume 10.1 fL (9.1-12.4); Platelet Count 257 K/mm3 (150-400); RDW Coefficient Variation 13.3 % (11.7-14.2); RDW Standard Deviation 44.7 fL (35.1-46.3); Red Blood Cell Count 5.15 M/mm3 (3.80-5.20); White Blood Cell Count 16.78 K/mm3 (4.00-11.30)
[2024-04-21 06:34] LABS: Bun/Creatinine Ratio 28.5 (12.0-20.0); Calcium, Blood 9.2 mg/dL (8.5-10.1); Creatinine, Blood 0.91 mg/dL (0.40-1.00); Potassium, Blood 4.2 mmol/L (3.5-5.5)
[2024-04-21 07:29] LABS: BAND PERCENT MAN 4 % (0-8); BASOPHILS PERCENT MAN 0 % (0-2); EOSINOPHILS PERCENT MAN 0 % (0-6); LYMPHOCYTES ABSOLUTE MAN 0.67 K/mm3 (0.84-5.20); LYMPHOCYTES PERCENT MAN 4 % (21-46); MONOCYTES ABSOLUTE MAN 0.33 K/mm3 (0.16-1.47); MONOCYTES PERCENT MAN 2 % (4-13); MYELOCYTE PERCENT MAN 3 % (0-0); NEUTROPHILS ABSOLUTE MAN 15.26 K/mm3 (1.96-9.15); SEG NEUTROPHILS PERCENT MAN 87 % (41-73); TOTAL CELLS COUNTED 100
--- NOTE | 2024-04-21 19:26 | NUR ---
SHIFT [facility]- PT HAD AN EVENT EARLIER IN THE DAY REPORTED TO THIS RN BY RT. PT GOOT OOB TO THE BATHROOM AND TOOK OFF HER O2, WHEN RT ENTERED THE ROOM THE PT SATS WERE IN THE LOW 80'S. DR MCLAUGHLIN AWARE. PT PLACED BACK ON O2 AT 3L VIA NC. PT HAD A COUGHING FIT THIS AFTERNOON AND ASKKED THIS RN TO INCREASE HHER O2 SHE COULD NOT CATCH HHER BREATH, SUPPLIED HER WITH A ERLINDA ANND INCREASED O2 FOR A FEW MINUTES TO 5L UNTIL PT WAS ABLE TO CATCH HER BREATH AND KEEP HER SATS ABOVE 90%. PT IS IN BED, CALLL LIGHT IN REACH AND DAUGHTER AT THE BEDSIDE AT THHE TIME OF BEDSIDE REPORT. O2 IN PLACE AT 3L VIA NC. TELE IN PLACE, NO S&S OF DISTRESS NOTED AT THE TIME OF BBEDSIDE REPORT.
[2024-04-21] MEDS ORDERED: MethylPREDNISolone Sod Succ 40 MG VIAL IV SCH (21:00)
[2024-04-22 00:04] VITALS: BP 153/101
--- NOTE | 2024-04-22 03:23 | NUR ---
SHIFT SUMMARY NO ACUTE OVERNIGHT EVENTS. O2 @3L VIA NASAL CANNULA. O2 SAT'S>95%. PRN OXYCODONE 5MG EFFECTIVE @HS FOR PAIN R/T COUGHING. PT REPORTS SORE THROAT @HS. TESSALON PEARLS PRN EFFECTIVE. DAUGHTER BY THE BEDSIDE DURING HS. BED AT THE LOWEST POSITION, CALL LIGHT W/I REACH. PT IS A/O X4, ABLE TO MAKE HER NEEDS KNOWN AND COOPERATIVE WITH CARE.
[2024-04-22 04:21] VITALS: BP 152/78
[2024-04-22 05:57] LABS: Hematocrit 43.9 % (33.0-51.0); Hemoglobin 14.4 g/dL (11.5-16.0); Mean Corpuscular HGB 28.4 pg (26.0-34.0); Mean Corpuscular HGB Conc 32.8 g/dL (31.5-36.5); Mean Corpuscular Volume 87 fL (80-100); Platelet Count 286 K/mm3 (150-400); RDW Coefficient Variation 13.6 % (11.7-14.2); RDW Standard Deviation 42.8 fL (35.1-46.3); Red Blood Cell Count 5.07 M/mm3 (3.80-5.20); White Blood Cell Count 17.68 K/mm3 (4.00-11.30)
[2024-04-22 06:27] LABS: BAND PERCENT MAN 6 % (0-8); BASOPHILS PERCENT MAN 0 % (0-2); EOSINOPHILS PERCENT MAN 0 % (0-6); LYMPHOCYTES % ATYPICAL MANUAL 1 % (0-0); LYMPHOCYTES ABSOLUTE MAN 1.06 K/mm3 (0.84-5.20); LYMPHOCYTES PERCENT MAN 5 % (21-46); METAMYELOCYTE ABSOLUTE MAN 0.35 K/mm3 (0.00-0.00); METAMYELOCYTE PERCENT MAN 2 % (0-0); MONOCYTES ABSOLUTE MAN 1.06 K/mm3 (0.16-1.47); MONOCYTES PERCENT MAN 6 % (4-13); MYELOCYTE ABSOLUTE MAN 0.53 K/mm3 (0.00-0.00); MYELOCYTE PERCENT MAN 3 % (0-0); NEUTROPHILS ABSOLUTE MAN 14.67 K/mm3 (1.96-9.15); SEG NEUTROPHILS PERCENT MAN 77 % (41-73); TOTAL CELLS COUNTED 100
[2024-04-22 06:29] LABS: Bun/Creatinine Ratio 29.5 (12.0-20.0); Calcium, Blood 9.2 mg/dL (8.5-10.1); Creatinine, Blood 0.92 mg/dL (0.40-1.00); Potassium, Blood 4.8 mmol/L (3.5-5.5)
[2024-04-22 07:22] VITALS: BP 169/99
[2024-04-22 16:46] VITALS: BP 156/85
--- NOTE | 2024-04-22 19:40 | NUR ---
SHIFT SUMMARY PATIENT WITH SHORTNESS OF BREATH INTERMITTENT HOWEVER SATTING THIS EVENING MID 90S WITH 1LPM NC UP TO BATHROOM AND BACK. CURRENTLY ON ROOM AIR BUT SHE STATES SHE DOES USE CPAP AT NIGHT. SHE CONTINUES TO REFUSE CONTINUOUS PULSE OXYMETRY.SHE IS MEDICATED FOR PAIN WITH GOOD RELIEF PER EMAR. BED IN LOW POSITION, CALL LIGHT IN REACH. SHE IS ABLE TO MAKE NEEDS KNOWN.
[2024-04-22 19:44] VITALS: BP 144/84
[2024-04-23] VITALS: BP 128/76
--- NOTE | 2024-04-23 03:33 | NUR ---
SHIFT SUMMARY NO ACUTE EVENTS. ON RA @NOC, SAT'S>90.PRN BROWN العلي @HS. TELE: A-FIB @73.DENIES PAIN/PRESSURE. PLAN IS TO POSSIBLY D/C TO HOME TODAY AND NEEDS HOME O2 EVAL. A/O X4,ABLE TO MAKE HER NEEDS KNOWN, COOPERATIVE WITH CARE. BED @LOWEST POSITION,CALL LIGHT W/I REACH.
[2024-04-23 04:11] VITALS: BP 176/97
[2024-04-23 05:29] LABS: Hematocrit 44.6 % (33.0-51.0); Hemoglobin 14.6 g/dL (11.5-16.0); Mean Corpuscular HGB 28.2 pg (26.0-34.0); Mean Corpuscular HGB Conc 32.7 g/dL (31.5-36.5); Mean Corpuscular Volume 86 fL (80-100); Mean Platelet Volume 9.6 fL (9.1-12.4); NRBC ABSOLUTE 0.02 K/mm3 (0.00-0.02); NRBC Auto 0.1 /100 WBC (0.0-0.2); Platelet Count 288 K/mm3 (150-400); RDW Coefficient Variation 13.4 % (11.7-14.2); RDW Standard Deviation 42.2 fL (35.1-46.3); Red Blood Cell Count 5.18 M/mm3 (3.80-5.20); White Blood Cell Count 19.71 K/mm3 (4.00-11.30)
[2024-04-23 06:13] LABS: BAND PERCENT MAN 6 % (0-8); BASOPHILS PERCENT MAN 0 % (0-2); EOSINOPHILS PERCENT MAN 0 % (0-6); LYMPHOCYTES ABSOLUTE MAN 1.18 K/mm3 (0.84-5.20); LYMPHOCYTES PERCENT MAN 6 % (21-46); METAMYELOCYTE ABSOLUTE MAN 0.39 K/mm3 (0.00-0.00); METAMYELOCYTE PERCENT MAN 2 % (0-0); MONOCYTES ABSOLUTE MAN 1.57 K/mm3 (0.16-1.47); MONOCYTES PERCENT MAN 8 % (4-13); MYELOCYTE ABSOLUTE MAN 0.39 K/mm3 (0.00-0.00); MYELOCYTE PERCENT MAN 2 % (0-0); NEUTROPHILS ABSOLUTE MAN 16.16 K/mm3 (1.96-9.15); SEG NEUTROPHILS PERCENT MAN 76 % (41-73); TOTAL CELLS COUNTED 100
[2024-04-23 06:18] LABS: Calcium, Blood 9.5 mg/dL (8.5-10.1); Creatinine, Blood 0.97 mg/dL (0.40-1.00); Potassium, Blood 4.1 mmol/L (3.5-5.5)
--- NOTE | 2024-04-23 07:07 | NUR ---
AROUND 0430 THIS ELEVATOR REPAIRER WAS CALLED TO PT'S ROOM. PT COUGHING, HAVING HARD TIME CATCHING HER BREATH. RT ADMINISTERED NEB TX. O2 SAT'S @96% ON RA. PT WANTED TO TRIAL RA T/O THE NIGHT. O2 ADMINISTERED VIA NASAL CANNULA, 2L. PT REPORTED FEELING BETTER. TESALON PEARLS ADMINISTERED ORDERED, PER PT REQUEST. PT CONTINUES NOW ON 1L VIA NASAL CANNULA. PT EAGER TO D/C HOME SOON ON RA. LUNGS TIGHT AND WHEEZING T/O. NON PRODUCTIVE COUGH.
[2024-04-23 07:12] VITALS: BP 135/88
[2024-04-23 09:35] LABS: Influenza A, PCR POSITIVE (NEGATIVE)
[2024-04-23] MEDS ORDERED: Mometasone/Formoterol MDI 200/5 mcg 13 GM INH SCH (09:35)
[2024-04-23] MEDS ORDERED: OLME20 PO (10:59)
[2024-04-23] MEDS ORDERED: CHLO25B PO (10:59)
[2024-04-23] MEDS ORDERED: ALLO100 PO (11:00)
[2024-04-23] MEDS ORDERED: KLOR-CON 1010 ME9 PO (11:01)
[2024-04-23] MEDS ORDERED: COLCHICINE0.6 MG PO (11:03)
[2024-04-23] MEDS ORDERED: IPRATROPIUM BRO30 ML (11:03)
[2024-04-23] MEDS ORDERED: ADVAIR HFA 230-28 GM INH (14:42)
[2024-04-23] MEDS ORDERED: FURO20 PO (14:43)
[2024-04-23 17:15] VITALS: BP 145/85
--- NOTE | 2024-04-23 18:01 | NUR ---
SHIFT SUMMARY PATIENT DESATURATED LAST NIGTH WHILE SLEEPING ON ROOM AIR, WOKE IN PANIC AND WAS PLACED BACK ON 2LPM. TODAY SHE HAS BEEN AGREABLE TO TRY CPAP AGAIN AND TOLERATED MASK THIS AFTERNOON DURING NAP WITH HOSPITAL CPAP. WHILE AWAKE IN BED SHE SATS 94-96% ON ROOM AIR SHE IS UP IN ROOM WITH STAND BY ASSIST AND CONTINUES TO GET SHORT OF BREATH WITH EXERTION AND SOMETIMES REQUIRES OXYGEN AFTER WALKING TO BATHROOM. BED IN LOW POSITION, CALL LIGHT IN REACH. SHE IS ABLE TO MAKE NEEDS KNOWN.
[2024-04-23 20:36] VITALS: BP 131/78
[2024-04-23] MEDS ORDERED: Pravastatin Sodium 20 MG Tab PO SCH (21:00)
[2024-04-24 02:41] VITALS: BP 158/86
--- NOTE | 2024-04-24 03:01 | NUR ---
SHIFT SUMMARY NO ACUTE EVENTS. PT AND RESTING T/O THIS SHIFT. CPAP IN PLACE PER RT. @O2 2L NASAL CANNULA, SAT'S>97%. PT DENIES SOB/PAIN/DISCOMFORT DURING THIS SHIFT. HOB>45 DEGREES. BED AT THE LOWEST POSITION, CALL LIGHT W/I REACH. PT IS COOPERATIVE WITH CARE AND ABLE TO MAKE HER NEEDS KNOWN.
[2024-04-24 05:55] LABS: Hematocrit 41.5 % (33.0-51.0); Hemoglobin 13.4 g/dL (11.5-16.0); Mean Corpuscular HGB 27.9 pg (26.0-34.0); Mean Corpuscular HGB Conc 32.3 g/dL (31.5-36.5); Mean Corpuscular Volume 87 fL (80-100); Platelet Count 227 K/mm3 (150-400); RDW Coefficient Variation 13.6 % (11.7-14.2); RDW Standard Deviation 42.5 fL (35.1-46.3)
[2024-04-24 06:19] LABS: BAND PERCENT MAN 6 % (0-8); BASOPHILS PERCENT MAN 0 % (0-2); EOSINOPHILS PERCENT MAN 0 % (0-6); LYMPHOCYTES % ATYPICAL MANUAL 2 % (0-0); LYMPHOCYTES ABSOLUTE MAN 2.39 K/mm3 (0.84-5.20); LYMPHOCYTES PERCENT MAN 12 % (21-46); METAMYELOCYTE ABSOLUTE MAN 0.51 K/mm3 (0.00-0.00); METAMYELOCYTE PERCENT MAN 3 % (0-0); MONOCYTES ABSOLUTE MAN 1.36 K/mm3 (0.16-1.47); MONOCYTES PERCENT MAN 8 % (4-13); NEUTROPHILS ABSOLUTE MAN 12.82 K/mm3 (1.96-9.15); SEG NEUTROPHILS PERCENT MAN 69 % (41-73); TOTAL CELLS COUNTED 100
[2024-04-24 06:35] LABS: Bun/Creatinine Ratio 27.7 (12.0-20.0); Calcium, Blood 9.3 mg/dL (8.5-10.1); Creatinine, Blood 0.94 mg/dL (0.40-1.00); Potassium, Blood 3.8 mmol/L (3.5-5.5)
[2024-04-24 08:13] VITALS: BP 154/100
[2024-04-24] MEDS ORDERED: HydroCHLOROthiazide 25 mg Tab PO SCH (09:00)
[2024-04-24] MEDS ORDERED: Losartan Potassium 50 MG Tab PO SCH (09:00)
[2024-04-24] MEDS ORDERED: Furosemide 40 MG Tab PO SCH (13:00)
[2024-04-24 15:55] VITALS: BP 119/88
--- NOTE | 2024-04-24 17:11 | NUR ---
SHIFT SUMMARY PT RESTING QUIETLY AT START OF SHIFT. WOKE EASILY FOR CARE. A&O, PLEASANT AND CO-OP. ABLE TO MAKE NEEDS KNOWN. PT IS CONTINENT OF BOWEL AND BLADDER. INDEPENDENT IN RM. IV ABX GIVEN PER EMAR. LUNGS T/O TIGHT WITH EXP WHEEZES. PO LASIX STARTED TODAY. PT MEDICATED X1 FOR C/O SORE THROAT FROM COUGHING. NO FURTHER C/O TO PRESENT. DENIES FURTHER NEEDS. CALL LT IN REACH.
[2024-04-24 19:32] VITALS: BP 115/74
[2024-04-25 05:14] VITALS: BP 152/88
[2024-04-25 06:51] LABS: Hematocrit 44.5 % (33.0-51.0); Hemoglobin 14.5 g/dL (11.5-16.0); Mean Corpuscular HGB Conc 32.6 g/dL (31.5-36.5); Mean Corpuscular Volume 86 fL (80-100); Mean Platelet Volume 10.2 fL (9.1-12.4); Platelet Count 209 K/mm3 (150-400); RDW Coefficient Variation 13.6 % (11.7-14.2); RDW Standard Deviation 42.5 fL (35.1-46.3); Red Blood Cell Count 5.17 M/mm3 (3.80-5.20); White Blood Cell Count 16.21 K/mm3 (4.00-11.30)
[2024-04-25 07:25] LABS: Bun/Creatinine Ratio 22.5 (12.0-20.0); Calcium, Blood 9.3 mg/dL (8.5-10.1); Creatinine, Blood 1.2 mg/dL (0.40-1.00); Potassium, Blood 3.4 mmol/L (3.5-5.5)
[2024-04-25 07:29] VITALS: BP 165/91
[2024-04-25 08:05] LABS: BAND PERCENT MAN 1 % (0-8); BASOPHILS PERCENT MAN 0 % (0-2); EOSINOPHILS PERCENT MAN 0 % (0-6); LYMPHOCYTES ABSOLUTE MAN 1.29 K/mm3 (0.84-5.20); LYMPHOCYTES PERCENT MAN 8 % (21-46); METAMYELOCYTE ABSOLUTE MAN 0.64 K/mm3 (0.00-0.00); METAMYELOCYTE PERCENT MAN 4 % (0-0); MONOCYTES ABSOLUTE MAN 1.78 K/mm3 (0.16-1.47); MONOCYTES PERCENT MAN 11 % (4-13); MYELOCYTE ABSOLUTE MAN 0.16 K/mm3 (0.00-0.00); MYELOCYTE PERCENT MAN 1 % (0-0); NEUTROPHILS ABSOLUTE MAN 12.31 K/mm3 (1.96-9.15); SEG NEUTROPHILS PERCENT MAN 75 % (41-73); TOTAL CELLS COUNTED 100
[2024-04-25] MEDS ORDERED: Potassium Chloride 20 MEQ TabCR PO ONE (09:35)
[2024-04-25] MEDS ORDERED: PredniSONE 20 MG Tab PO SCH (12:15)
[2024-04-25 16:33] VITALS: BP 136/83
--- NOTE | 2024-04-25 17:38 | NUR ---
SHIFT SUMMARY: PATIENT A/OX4, PLEASANT AND COOPERATIVE c CARE. PATIENT ON 2L O2 VIA NC, SATTING 97-98%. PATIENT LUNGS SOUNDS HAS CRACKLES AND WHEEZY T/O, DR. MCLAUGHLIN IS AWARE OF THIS CONCERNED AND STARTED HER ON PREDNISONE THIS PM. PATIENT RECEIVED BREATHING TX ADMINISTERED BY RT PER ORDER. PATIENT REPORTS PAIN TO THROAT, MEDICATED PER EMAR c MOD EFFECT. PATIENT HAS MOD APPETITE, CONTINENT OF BOWEL/BLADDER, AMBULATES TO BATHROOM INDEPENDENTLY T/O SHIFT. PATIENT RECEIVED IV ABX/SCHEDULED MEDS PER EMAR. PATIENT HAS ECHO OREDRED. VITAL SIGNS REVIEWED. CALL LIGHT IN REACH.
[2024-04-25 19:39] VITALS: BP 103/74
[2024-04-26 03:54] VITALS: BP 118/72
[2024-04-26 05:44] LABS: BASOPHILS ABSOLUTE AUTO 0.07 K/mm3 (0.00-0.23); BASOPHILS PERCENT AUTO 1 % (0-2); EOSINOPHILS ABSOLUTE AUTO 0.01 K/mm3 (0.00-0.68); EOSINOPHILS PERCENT AUTO 0 % (0-6); IMMATURE GRAN ABSOLUTE AUTO 0.54 K/mm3 (0.00-0.10); IMMATURE GRAN PERCENT AUTO 4 % (0-1); LYMPHOCYTES ABSOLUTE AUTO 1.36 K/mm3 (0.84-5.20); LYMPHOCYTES PERCENT AUTO 10 % (21-46); MONOCYTES ABSOLUTE AUTO 1.04 K/mm3 (0.16-1.47); MONOCYTES PERCENT AUTO 8 % (4-13); Mean Corpuscular HGB 28.6 pg (26.0-34.0); Mean Corpuscular HGB Conc 33.3 g/dL (31.5-36.5); Mean Corpuscular Volume 86 fL (80-100); Mean Platelet Volume 10.3 fL (9.1-12.4); NEUTROPHILS ABSOLUTE AUTO 10.91 K/mm3 (1.96-9.15); NEUTROPHILS PERCENT AUTO 78 % (41-73); Platelet Count 201 K/mm3 (150-400); RDW Coefficient Variation 13.6 % (11.7-14.2); RDW Standard Deviation 42.4 fL (35.1-46.3); Red Blood Cell Count 4.89 M/mm3 (3.80-5.20); White Blood Cell Count 13.93 K/mm3 (4.00-11.30)
[2024-04-26 06:22] LABS: Bun/Creatinine Ratio 27.2 (12.0-20.0); Calcium, Blood 9.3 mg/dL (8.5-10.1); Creatinine, Blood 1.03 mg/dL (0.40-1.00); Potassium, Blood 3.4 mmol/L (3.5-5.5)
[2024-04-26 07:22] VITALS: BP 113/67
[2024-04-26] MEDS ORDERED: Potassium Chloride 20 MEQ TabCR PO ONE (09:30)
[2024-04-26] MEDS ORDERED: Mometasone/Formoterol MDI 200/5 mcg 13 GM INH SCH (13:45)
[2024-04-26 15:13] VITALS: BP 116/67
--- NOTE | 2024-04-26 16:22 | NUR ---
SHIFT SUMMARY: PATIENT HAS HAD NO NEW ACUTE CHANGES THIS SHIFT. PATIENT MEDICATED X1 FOR COUGH AND X1 FOR PAIN TO THROAT PER EMAR c GOOD EFFECT. PATIENT ON 2L O2 VIA NC, LUNGS SOUNDS STILL WHEEZY AND RONCHI T/O, DR. MCLAUGHLIN IS AWARE OF THIS ISSUE, ORDERED REPEAT X-RAY c RESULT AVAILABLE TO REVIEW. PATIENT HAS MOD APPETITE, CONTINENT OF BOWEL/BLADDER, AMBULATES TO BATHROOM INDEPENDENTLY T/O SHIFT. PATIENT AMBULATED X1 IN HALLWAY, TOLERATED WELL. PATIENT RECEIVED SCHEDULED IV ABX/MEDS PER EMAR. VITAL SIGNS REVIEWED. CALL LIGHT IN REACH.
[2024-04-26 20:19] VITALS: BP 125/67
[2024-04-27 04:40] VITALS: BP 118/73
[2024-04-27 05:26] LABS: BASOPHILS ABSOLUTE AUTO 0.04 K/mm3 (0.00-0.23); BASOPHILS PERCENT AUTO 0 % (0-2); EOSINOPHILS ABSOLUTE AUTO 0.02 K/mm3 (0.00-0.68); EOSINOPHILS PERCENT AUTO 0 % (0-6); Hematocrit 41.2 % (33.0-51.0); Hemoglobin 13.6 g/dL (11.5-16.0); IMMATURE GRAN ABSOLUTE AUTO 0.29 K/mm3 (0.00-0.10); IMMATURE GRAN PERCENT AUTO 2 % (0-1); LYMPHOCYTES ABSOLUTE AUTO 1.48 K/mm3 (0.84-5.20); LYMPHOCYTES PERCENT AUTO 10 % (21-46); MONOCYTES ABSOLUTE AUTO 0.99 K/mm3 (0.16-1.47); MONOCYTES PERCENT AUTO 7 % (4-13); Mean Corpuscular HGB 28.5 pg (26.0-34.0); Mean Corpuscular Volume 86 fL (80-100); Mean Platelet Volume 10.6 fL (9.1-12.4); NEUTROPHILS ABSOLUTE AUTO 12.25 K/mm3 (1.96-9.15); NEUTROPHILS PERCENT AUTO 81 % (41-73); Platelet Count 181 K/mm3 (150-400); RDW Coefficient Variation 13.6 % (11.7-14.2); RDW Standard Deviation 42.4 fL (35.1-46.3); Red Blood Cell Count 4.78 M/mm3 (3.80-5.20); White Blood Cell Count 15.07 K/mm3 (4.00-11.30)
[2024-04-27 06:01] LABS: Bun/Creatinine Ratio 31.2 (12.0-20.0); Calcium, Blood 9.4 mg/dL (8.5-10.1); Creatinine, Blood 0.93 mg/dL (0.40-1.00); Potassium, Blood 3.4 mmol/L (3.5-5.5)
[2024-04-27 07:15] VITALS: BP 133/85
[2024-04-27] MEDS ORDERED: Potassium Chloride 20 MEQ TabCR PO ONE (09:40)
[2024-04-27 15:23] VITALS: BP 153/69
--- NOTE | 2024-04-27 18:39 | NUR ---
SHIFT SUMMARY: PATIENT A/OX4, PLEASANT AND COOPERATIVE c CARE. PATIENT STILL ON 2L O2 VIA NC, SATTING 96-98%, REPORTS SOB c AMBULATION, PRODUCTIVE COUGH, LUNGS SOUNDS CRACKLES AND WHEEZY T/O. PATIENT REQUESTING TO STAYED ONE MORE NIGHT AND GO HOME TOMORROW. NOTIFIED DR. MCLAUGHLIN c PATIENT REQUEST. PATIENT MEDICATED X1 FOR THROAT PAIN AND X1 FOR COUGH c GOOD EFFECT. PATIENT RECEIVED BREATHING TX ADMINISTERED BY RT PER ORDER. PATIENT HAS MOD APPETITE, CONTINENT OF BOWEL/BLADDER, AMBULATES TO BATHROOM INDEPENDENTLY T/O SHIFT. PATIENT RECEIVED IV ABX/SCHEDULED MEDS PER EMAR. VITAL SIGNS REVIEWED. CALL LIGHT IN REACH.
[2024-04-27 20:52] VITALS: BP 140/73
[2024-04-28 02:47] VITALS: BP 143/84
--- NOTE | 2024-04-28 04:56 | NUR ---
SHIFT SUMMARY: PAT IS A&OX4. VSS, NO ACUTE EVENTS OVERNIGHT. SHE IS MAINTAINING HER O2 SATS >90% ON 2L VIA NC. DISCUSSED HOME O2 EVAL PRIOR TO DISCHARGE. SHE STATES ALAN IS HER DME SUPPLIER. SHE IS INDEPENDENT IN THE ROOM, WALKS FOR SHORT DISTANCES ONLY. SHE HAS BEEN CONTINENT OF BLADDER AND BOWEL, USES THE CALL LIGHT APPROPRAITELY, AND IS ABLE TO TURN/REPOSITION HERSELF IN BED INDEPENDENTLY. SHE REPORTS SHE HAS BEEN ABLE TO COUGH UP MORE PHLEGM LATELY AND FEELS THAT HER LUNGS ARE BECOMING LESS CONGESTED. PT HAS RESTED QUIETLY FREQUENTLY THIS SHIFT, OCCASIONAL EPISODES OF COUGH HAVE INTERRUPTED HER SLEEP. SHE IS LYING IN BED WITH THE CALL LIGHT IN REACH, BED IN LOWEST POSITION. WILL GIVE REPORT TO DAY SHIFT RN.
[2024-04-28 06:41] LABS: BASOPHILS ABSOLUTE AUTO 0.01 K/mm3 (0.00-0.23); BASOPHILS PERCENT AUTO 0 % (0-2); EOSINOPHILS ABSOLUTE AUTO 0.01 K/mm3 (0.00-0.68); EOSINOPHILS PERCENT AUTO 0 % (0-6); Hematocrit 39.1 % (33.0-51.0); Hemoglobin 12.6 g/dL (11.5-16.0); IMMATURE GRAN ABSOLUTE AUTO 0.18 K/mm3 (0.00-0.10); IMMATURE GRAN PERCENT AUTO 2 % (0-1); LYMPHOCYTES ABSOLUTE AUTO 1.09 K/mm3 (0.84-5.20); LYMPHOCYTES PERCENT AUTO 10 % (21-46); MONOCYTES ABSOLUTE AUTO 0.89 K/mm3 (0.16-1.47); MONOCYTES PERCENT AUTO 8 % (4-13); Mean Corpuscular HGB Conc 32.2 g/dL (31.5-36.5); Mean Corpuscular Volume 87 fL (80-100); Mean Platelet Volume 10.2 fL (9.1-12.4); NEUTROPHILS ABSOLUTE AUTO 9.21 K/mm3 (1.96-9.15); NEUTROPHILS PERCENT AUTO 81 % (41-73); Platelet Count 173 K/mm3 (150-400); RDW Coefficient Variation 13.8 % (11.7-14.2); RDW Standard Deviation 43.5 fL (35.1-46.3); White Blood Cell Count 11.39 K/mm3 (4.00-11.30)
[2024-04-28 07:01] LABS: Bun/Creatinine Ratio 26.1 (12.0-20.0); Calcium, Blood 8.8 mg/dL (8.5-10.1); Creatinine, Blood 0.92 mg/dL (0.40-1.00); Potassium, Blood 3.7 mmol/L (3.5-5.5)
[2024-04-28 07:30] VITALS: BP 115/67
[2024-04-28] MEDS ORDERED: BENZ100A PO (13:48)
[2024-04-28] MEDS ORDERED: GUAI600T33 PO (13:48)
[2024-04-28] MEDS ORDERED: PRED20 PO (13:51)
[2024-04-28] MEDS ORDERED: OXYC5 PO (13:52)
[2024-04-28] MEDS ORDERED: IPRAT-ALBUT 0.5-3 ML INH (15:32)
--- NOTE | 2024-04-28 17:01 | NUR ---
1542-DC PT LEFT IN STABLE CONDITION WITH ALL BELONGINGS WITH DAUGHTER AND . PT IN WC DOWN FOR DC.
== END 2024-04-28 15:42 | disposition home health service (06) | DRG 193 ==
LOC: ER 20:50 → MEDS 20:51
PROVIDERS: Family Medicine; Internal Medicine; Student in an Organized Health Care Education/Training Program; ADMIT Student in an Organized Health Care Education/Training Program
PROC: 5A09357 Assistance with Respiratory Ventilation, Less than 24 Consecutive Hours, Continuous Positive Airway Pressure (ICD-10-PCS; principal; 2024-04-23)
DX: J10.1 Influenza due to other identified influenza virus with other respiratory manifestations (principal); G93.41 Metabolic encephalopathy; J96.01 Acute respiratory failure with hypoxia; J44.1 Chronic obstructive pulmonary disease with (acute) exacerbation; I48.91 Unspecified atrial fibrillation; J44.89 Other specified chronic obstructive pulmonary disease; I25.10 Atherosclerotic heart disease of native coronary artery without angina pectoris; E78.5 Hyperlipidemia, unspecified; E03.9 Hypothyroidism, unspecified; Z96.642 Presence of left artificial hip joint; R53.1 Weakness; I10 Essential (primary) hypertension; G47.30 Sleep apnea, unspecified; E87.6 Hypokalemia; Z79.01 Long term (current) use of anticoagulants; Z88.5 Allergy status to narcotic agent; Z99.81 Dependence on supplemental oxygen; Z88.8 Allergy status to other drugs, medicaments and biological substances; Z88.1 Allergy status to other antibiotic agents; Z79.899 Other long term (current) drug therapy; Z79.51 Long term (current) use of inhaled steroids; Z79.890 Hormone replacement therapy; Z98.890 Other specified postprocedural states; Z90.710 Acquired absence of both cervix and uterus; Z87.19 Personal history of other diseases of the digestive system; Z98.51 Tubal ligation status; Z98.42 Cataract extraction status, left eye; Z98.41 Cataract extraction status, right eye; Z87.891 Personal history of nicotine dependence; Z90.722 Acquired absence of ovaries, bilateral
CPT/HCPCS: 0241U; 36415; 71045; 71046; 80048; 80053; 82947; 83605; 83735; 83880; 84145; 84484; 85025; 87040; 93005; 93010; 93306; 94640; 94644; 94645; 94660; 94664; 94760; 94761; 94762; 96374; 96375; 97161; 99285-25; A9270; G0378; J0696; J2405; J2919; J7050; J7512